=== PATIENT | male | born 1990 | race Caucasian/White ===

== ENCOUNTER 2020-10-28 19:17 | Emergency (ER) | payer OTHER ==
[2020-10-28] MEDS ORDERED: ERYTHROMYCIN O3.5 GM OS (22:24)
== END 2020-10-28 22:54 | disposition home or self-care (01) ==
LOC: ER1 19:17
DX: S05.02XA Injury of conjunctiva and corneal abrasion without foreign body, left eye, initial encounter (principal); Z23 Encounter for immunization; Z90.89 Acquired absence of other organs; X58.XXXA Exposure to other specified factors, initial encounter
CPT/HCPCS: 90471; 90715; 99283